=== PATIENT | male | born 1950 | race Caucasian/White ===

== ENCOUNTER 2025-02-28 17:59 | Emergency (ER) | payer OTHER, MEDICARE ==
[~2025-02-28] VITALS: Ht 177.8 cm; Wt 109.4 kg
[~2025-02-28 17:59] MED LIST: ALBU18HF2 INH; HYDR-4353 PO; MORP60TA PO; PRAV10TA38 PO; QUET25TA PO; RIVA10TA PO
--- NOTE | 2025-02-28 19:22 | Physician Documentation ---
History of Present Illness ~ Chief Complaint: Mechanical Fall Stated Complaint: FALL 02/25/25 Time Seen by MD: 19:21 Primary Medical Doctor: NURYS; CAMP COORDINATOR HPI 74-year-old male, history of bilateral hip replacements, who presents with a fall and left-sided pain He tells me that he was at [employer], about 3 days ago, when he stepped on a roll of deodorant, and fell, landing on his left side. No significant head injury or loss consciousness. Since that time, he has been having pain on his left side. He states that he has some pain in the left muscles of the left side of his neck, the left shoulder, the left lower back, the left hip and thigh. He is able to ambulate. No specific midline neck pain. No difficulty with left arm function. No shortness of breath. No abdominal pain. No significant difficulty walking or bearing weight on his left hip. He has an appointment on Sunday with his orthopedic doctor, and they plan to do an x-ray of his hip. He reports he is here because of the pain. No other acute concerns. He has taken Dermott at home with intermittent relief. Tetanus within 5 Years?: Yes Medication Reconciliation Allergies: Coded Allergies: No Known Allergies (Unverified , 08/07/13) Scheduled Albuterol Sulfate (Ventolin Hfa), 2 PUFFS INH Q4HPRN Morphine Sulfate (Morphine Sulfate), 60 MG PO TID, (Reported) Pravastatin Sodium* (Pravachol*), 10 MG PO DAILY, (Reported) Quetiapine Fumarate (Seroquel), 1 TABLET PO HS, (Reported) Rivaroxaban* (Xarelto*), 20 MG PO DAILY Scheduled PRN Cyclobenzaprine HCl (Cyclobenzaprine HCl), 1 TAB PO HS PRN for muscle spasms Hydrocodone Bit/Acetaminophen (Dermott 10-325 Tablet), 1 TAB PO Q8H PRN for pain Past Medical History Past Medical History: Atrial Fibrillation, Asthma Past Surgical History: orthopedic surgeries Patient History: (CHF) Congestive heart failure brother FH: cancer FATHER MOTHER brother Other Past Family History: NONCONTRIBUTORY Alcohol Use: Occasionally Drug Use: none Review of Systems Neurological: Denies: headache Musculoskeletal: Reports: pain, muscle pain, muscle swelling Physical Exam Vital Signs: Temperature: 97.7, Source: Temporal, Heart Rate: 82, Respiratory Rate: 16, BP: 165/93, Pulse Oximetry: 97, Weight: 109.400 Oxygen Flow Rate: 0 Physical Exam General: This is a pleasant and overall well-appearing older gentleman, sitting calmly in bed HEENT: Atraumatic, no tenderness on palpation of the scalp, oropharynx is moist Neck: No midline C-spine tenderness Heart: Regular rate and rhythm, normal-appearing peripheral perfusion Lungs: normal work of breathing, normal oxygen saturation on room air Abdomen: Soft, nondistended, nontender Back: Mild tenderness on palpation of the muscles of the left lateral lower back Extremities: Warm and well-perfused Left upper extremity: The patient does have some mild generalized discomfort on palpation of the muscles of the left shoulder. He has full range of motion in the left arm. Normal sensation and strength to the left hand. Left lower extremity: The patient has mild diffuse tenderness on palpation of the buttocks, hip, and thigh. No focal bony point tenderness. No decreased range of motion or significant hip pain with flexion or rotation. He is able to stand and bear weight as well as stand up on his toes and stand on his heal without significant difficulty. No new numbness or weakness to the left leg. Neuro: Alert and oriented Psychiatric: Calm and cooperative with exam Progress Results/Orders Results/Orders Completed Orders - SINGH BHAKTA MD Lidocaine 5% Patch (Lidoderm 5% Patch) (02/28/25 19:35) Cyclobenzaprine Tablet (Flexeril Tablet) (02/28/25 19:35) Medications Received in ER Medications (Trade) Dose Ordered Sig/Brandin Route PRN Reason Start Time Stop Time Status Last Admin Dose Admin (Lidoderm 5% Patch) 2 patch ONCE ONCE TP 02/28/25 19:35 02/28/25 19:39 DC 02/28/25 19:45 1 PATCH (Flexeril tablet) 10 mg ONCE ONCE PO 02/28/25 19:35 02/28/25 19:39 DC 02/28/25 19:44 10 MG Vital Signs 02/28/25 02/28/25 02/28/25 18:15 19:15 19:15 Temp 97.7 Pulse 91 82 Resp 18 16 16 B/P (MAP) 159/92 165/93 (117) Pulse Ox 97 97 O2 Flow Rate 0 0 Medical Decision Making Additional Comment Differential includes contusion, fracture, dislocation, internal injury, head injury or intracranial hemorrhage Assessment The patient presents with a fall several days ago, with diffuse left-sided pain. Per his history and exam this is all consistent with contusions. He has no findings to suggest a dangerous intracranial injury or hemorrhage, and no findings to suggest a cervical spine injury. No evidence to suggest a fracture including in the left arm or left hip. He is already taking pain medication at home. He was given ice, Lidoderm patches, and will be discharged with a muscle relaxant to help him sleep. He has an appointment with his orthopedic surgeon on Sunday with a scheduled x-ray. I did offer to perform the x-ray here in the emergency department but after shared decision-making conversation he decided to wait until Sunday. I do not feel that any further workup or testing is in dicated at this time. Home care instructions were given. Departure Time of Disposition: 19:39 Disposition: 01 HOME / SELF CARE / HOMELESS Impression: Primary Impression: Contusion of left hip Condition: Stable Discharge Instructions: Contusion Referrals: NO PRIMARY CARE PROVIDER (PCP) Prescriptions Cyclobenzaprine HCl (Cyclobenzaprine HCl) 5 Mg Tablet 1 TAB PO HS PRN for muscle spasms for 10 Days, #10 TAB 0 Refills Prov: SINGH BHAKTA MD 02/28/25 Education Educated: Patient Educated regarding: diagnosis, treatment, need for follow up Signature Scribe Signature: rosalino Attestation: SINGH Malcolm MD Feb 28, 2025 19:21
[2025-02-28] MEDS ORDERED: CYCL-920 PO (19:43)
[2025-02-28 20:05] VITALS: BP 134/80; PULSE 76; RESP 16; TEMP 97.6; O2SAT 99
== END 2025-02-28 20:07 | disposition home or self-care (01) ==
LOC: ER 18:00
DX: S70.02XA Contusion of left hip, initial encounter (principal); M25.512 Pain in left shoulder; M54.2 Cervicalgia; I48.91 Unspecified atrial fibrillation; I50.9 Heart failure, unspecified; J45.909 Unspecified asthma, uncomplicated; W19.XXXA Unspecified fall, initial encounter; Y93.89 Activity, other specified; Y92.89 Other specified places as the place of occurrence of the external cause; Y99.8 Other external cause status
CPT/HCPCS: 99284

== ENCOUNTER 2025-06-29 17:27 | Emergency (ER) | payer OTHER, MEDICARE ==
[~2025-06-29] VITALS: Ht 177.8 cm; Wt 112.3 kg
[~2025-06-29 17:27] MED LIST changes: +CYCL-920 PO
--- NOTE | 2025-06-29 17:55 | Physician Documentation ---
History of Present Illness ~ Chief Complaint: Mechanical Fall Stated Complaint: BACK PAIN Time Seen by MD: 19:55 Primary Medical Doctor: NURYS; STEELER HPI This is a 75-year-old male who presents with back and left buttock pain falling a ground level fall caused by my leg gave out two days prior. Patient reports no head strike, no loss of consciousness, and no blood thinners. Patient reports he was seen by his primary care provider and prescribed pain medications however his primary care provider asked him to present to the emergency department for x-rays. Patient reports no new weakness or numbness in his legs, no loss of bowel or bladder control. Tetanus within 5 Years?: Yes Medication Reconciliation Allergies: Coded Allergies: No Known Allergies (Unverified , 06/29/25) Scheduled Albuterol Sulfate (Ventolin Hfa), 2 PUFFS INH Q4HPRN Morphine Sulfate (Morphine Sulfate), 60 MG PO TID, (Reported) Pravastatin Sodium* (Pravachol*), 10 MG PO DAILY, (Reported) Quetiapine Fumarate (Seroquel), 1 TABLET PO HS, (Reported) Rivaroxaban* (Xarelto*), 20 MG PO DAILY Scheduled PRN Cyclobenzaprine HCl (Cyclobenzaprine HCl), 1 TAB PO HS PRN for muscle spasms Hydrocodone Bit/Acetaminophen (Sheldon 10-325 Tablet), 1 TAB PO Q8H PRN for pain Past Medical History Past Medical History: Atrial Fibrillation, Asthma Past Surgical History: orthopedic surgeries Patient History: (CHF) Congestive heart failure brother FH: cancer FATHER MOTHER brother Other Past Family History: NONCONTRIBUTORY Alcohol Use: Occasionally Drug Use: none Review of Systems ROS As stated above in the HPI, otherwise all systems are reviewed and negative. Physical Exam Vital Signs: Temperature: 98.8, Source: Temporal, Heart Rate: 98, Respiratory Rate: 18, BP: 137/83, Pulse Oximetry: 99, Weight: 112.270 Oxygen Flow Rate: 0 Physical Exam VITALS: Reviewed and as above. GENERAL: Alert, nontoxic appearing, no apparent distress. HEENT: No C-spine tenderness RESPIRATORY: No increased work of breathing, no respiratory distress, speaking in full clear sentences BACK: Tenderness to palpation to left lumbar back. No central spinal tenderness, no crepitus, no step-offs SKIN: Abrasions ecchymosis to left lower back and upper left buttock Progress Results/Orders Results/Orders Orders - WATSON BUITRAGO Lumbar Spine Limited (06/29/25 17:49) Completed Orders - WATSON BUITRAGO Lumbar Spine Limited (06/29/25 17:49) Vital Signs 06/29/25 06/29/25 17:34 20:38 Temp 98.8 98.6 Pulse 98 96 Resp 18 18 B/P (MAP) 137/83 135/82 Pulse Ox 99 99 O2 Flow Rate 0 EKG/XRAY/CT/US/VASC/MRI Bone/Soft Tissue X-Ray (Spine) : Additional Comment Exam: LUMBAR SPINE LIMITED CLINICAL INDICATION: FALL TECHNIQUE: 3 radiographic views of the lumbar spine were obtained. COMPARISON: None FINDINGS/IMPRESSION: 5 [id number] lumbar-type vertebrae. Minimal dextroconvex curvature of the lumbar spine with slight exaggeration of the lower lumbar lordosis. Severe degenerative changes of the lumbar spine. Postsurgical changes at L5-S1. Grade 1 retrolisthesis of L2 on L3 and L3 on L4 with grade 1 anterolisthesis of L4 on L5 and L5 on S1. Partially imaged bilateral total hip replacement. [id number] degenerative changes of bilateral SI joints. Moderate to large amount of fecal material within the visualized colon. Phleboliths is noted within the right hemipelvis. Electronically Signed by:STARR LUNSFORD DO Date & Time: 06/29/251809 Dictated by: STARR LUNSFORD DO Dictation date and time: 06/29/251809 I have reviewed and agree with the radiology report. I have reviewed and interpreted the imaging as: No vertebral fractures Medical Decision Making Additional information obtaine: N/A Findings MSE performed in triage and patient returned to ED lobby by nursing staff to await available ED room Which she verbalized understanding of. This 75-year-old male presented with back and left buttock pain after a ground level fall two days prior, patient has been seen by his primary care provider and provided pain medications however primary care provider asked patient presented understood department for imaging of low back her patient was well-appearing and physical exam was reassuring with no central spinal tenderness though due to traumatic nature of back pain imaging was obtained, imaging did not demonstrate acute fractures or traumatic misalignment though did demonstrate chronic appearing findings which patient reports he is aware of it was reassuring patient reported no new weakness or numbness in legs, no saddle paresthesia, and no loss of bowel or bladder control. Patient reports pain is well controlled, and remainder of physical exam benign. Patient is appropriate for outpatient follow up and will follow up with the primary care provider as scheduled. Patient provided careful return to care precautions follow up instructions and home care instructions Differential Dx:Considerations: Include: Closed head injury, Fracture(s), Intraabdominal injury, Pneumothorax, Cerebral contusion, Spine injury, Vascular injury, Contusion(s), Foreign body(s), Hematoma(s), Laceration(s), Other (Cauda equina, neurovascular injury) Departure Time of Disposition: 20:31 Disposition: HOME / SELF CARE / HOMELESS Impression: Primary Impression: Lumbar back pain Additional Impressions: Left buttock pain Abrasion of left buttock Qualified Codes: S30.810D - Abrasion of lower back and pelvis, subsequent encounter Contusion of left buttock Condition: Improved Discharge Instructions: Fall Prevention in the Home, Adult, [id number] Additional Instructions: Your x-ray was reassuring. Follow up as scheduled for your MRI. Please follow up with your primary care provider in the next few days. Please return to the emergency department for any new or worsening concerning symptoms. Referrals: NO PRIMARY CARE PROVIDER (PCP) Education Educated: Patient Educated regarding: diagnosis, treatment, prognosis, need for follow up Signature Scribe Signature: No scribe Attestation: The note accurately reflects work and decisions made by me.RODRIGUE Osborne 06/30/25 13:13 WATSON BUITRAGO Jun 29, 2025 17:55
--- NOTE | 2025-06-29 18:13 | RADIOLOGY REPORT ---
CLINICAL INDICATION: FALL TECHNIQUE: 3 radiographic views of the lumbar spine were obtained. COMPARISON: None FINDINGS/IMPRESSION: 5 [id number] lumbar-type vertebrae. Minimal dextroconvex curvature of the lumbar spine with slight exaggeration of the lower lumbar lordosis. Severe degenerative changes of the lumbar spine. Postsurgical changes at L5-S1. Grade 1 retrolisthesis of L2 on L3 and L3 on L4 with grade 1 anterolisthesis of L4 on L5 and L5 on S1. Partially imaged bilateral total hip replacement. [id number] degenerative changes of bilateral SI joints. Moderate to large amount of fecal material within the visualized colon. Phleboliths is noted within the right hemipelvis.
[2025-06-29 20:38] VITALS: BP 135/82; PULSE 96; RESP 18; TEMP 98.6; O2SAT 99
== END 2025-06-29 20:39 | disposition home or self-care (01) ==
LOC: ER 17:28
DX: S30.0XXA Contusion of lower back and pelvis, initial encounter (principal); S30.810A Abrasion of lower back and pelvis, initial encounter; I50.9 Heart failure, unspecified; I48.91 Unspecified atrial fibrillation; Z98.890 Other specified postprocedural states; Z72.89 Other problems related to lifestyle; Z79.899 Other long term (current) drug therapy; W18.30XA Fall on same level, unspecified, initial encounter; Y93.89 Activity, other specified; Y92.89 Other specified places as the place of occurrence of the external cause; Y99.8 Other external cause status
CPT/HCPCS: 72100; 99283